=== PATIENT | female | born 1980 | race Caucasian/White ===

== ENCOUNTER 2019-02-09 16:58 | Observation (INO) | payer OTHER ==
[2019-02-09 17:22] LABS: BILIRUBIN,URINE NEGATIVE (NEG); CLARITY,URINE CLEAR; COLOR,URINE YELLOW; NITRITE,URINE NEGATIVE (NEG); PH,URINE 5.5; PROTEIN,URINE NEGATIVE (NEG-TRACE)
[2019-02-09 17:31] LABS: BACTERIA,URINE MODERATE /HPF (0-FEW); RBC,URINE 0 /HPF (0-2); SQUAMOUS EPITHELIAL CELL,UR MANY /LPF
[2019-02-09] MEDS: IV RINGERS,LACTATED 1000ML 1,000 ML IV SCH ×2 (18:07→18:29)
[2019-02-09 18:19] LABS: BASO # 0.1 x10^3/uL (0.0-0.2); BASO % 0 % (0-3); EOS % 0 % (0-3); HEMATOCRIT 35.2 % (36.0-47.0); HEMOGLOBIN 11.8 g/dL (12.0-15.5); LYMPH # 2.2 x10^3/uL (1.0-4.8); LYMPH % 15 % (24-48); MEAN CORPUSCULAR HEMOGLOBIN 32 pg (25-35); MEAN CORPUSCULAR HGB CONC 33 g/dL (31-37); MEAN CORPUSCULAR VOLUME 96 fL (79-100); MONO # 0.9 x10^3/uL (0.0-1.1); MONO % 6 % (0-9); NEUT # 11.7 x10^3/uL (1.8-7.7); NEUT % 79 % (31-73); PLATELET COUNT 260 x10^3/uL (140-400); RED BLOOD COUNT 3.65 x10^6/uL (3.50-5.40); RED CELL DISTRIBUTION WIDTH 12.7 % (11.5-14.5); WHITE BLOOD COUNT 14.9 x10^3/uL (4.0-11.0)
[2019-02-09 18:28] LABS: CALCIUM 8.9 mg/dL (8.5-10.1); CREATININE 0.6 mg/dL (0.6-1.0); GFR 110.2; POTASSIUM 3.6 mmol/L (3.5-5.1)
[2019-02-09 18:42] LABS: ALBUMIN 2.7 g/dL (3.4-5.0); ALBUMIN/GLOBULIN RATIO 0.7 (1.0-1.7); TOTAL BILIRUBIN 0.4 mg/dL (0.2-1.0); TOTAL PROTEIN 6.6 g/dL (6.4-8.2)
[2019-02-09] MEDS ORDERED: ONDANSETRON PF 4 MG/2 ML VIAL. ONE (19:22)
[2019-02-09] MEDS ORDERED: MAGNESIUM SULFATE 2GM 50 ML IV ONE ×2 (19:22→19:30)
[2019-02-09] MEDS ORDERED: MAGNESIUM SULFATE 4GM 100 ML IV ONE ×2 (19:22→19:30)
--- NOTE | 2019-02-09 19:25 | RAD ---
Limited OB ultrasound greater than 14 weeks HISTORY: Abdominal pain and contractions There is a single live intrauterine the heartbeat is confirmed at 140 beats per minute. Visualization of structures is limited by the advanced facial age. There is a cephalic position. There is a posterior placenta. The LMP of 07/22/2018 corresponds with 28 week 6 day gestational age and estimated confinement April 28, 2019. Estimated size by ultrasound is 20 weeks 4 days. Estimated weight is 2 lbs. 12 oz. +/- 6 ounces. The measurements are as follows: BPD 7.2 cm 20 weeks 5 days Head circumference 26.6 cm 29 weeks 0 days Abdominal circumference 24.4 cm 28 weeks 5 days Femur length 5.2 cm 27 weeks 6 days Amniotic fluid index is 7.0 cm. Maternal cervix is not well seen due to the cephalic position. IMPRESSION: 1. Single live intrauterine at 28 weeks 6 days gestational age by LMP has appropriate size by ultrasound. 2. No abnormality identified. Electronically signed by: Doug Carney III, MD (02/09/2019 7:23 PM) [id number]
[2019-02-09] MEDS ORDERED: ONDANSETRON PF 4 MG/2 ML VIAL. IV ONE (19:30)
[2019-02-09] MEDS ORDERED: BETAMET ACET&NA PHOS 30 MG/5 ML VIAL. IM ONE (19:30)
--- NOTE | 2019-02-09 19:37 | PDOC1 ---
OB - History Hx of Present Care: Good Care Ultrasounds: Normal mid trimester US Obstetrical Complications: None Medical Complications: None Past Family/Social History * Past Medical, Surgical, Family and Obstetric Histories reviewed from chart. Blood Type: Unknown Rubella: Unknown RPR/VDRL: Unknown GBS Status: Unknown HBsAG: Unknown OB - Chief Complaint & HPI Date of Admission: Date of Admission: Feb 09, 2019 at 16:58 Chief Complaint/History : 3 Para: 2 EGA: 28 Reason for admission: labor Admission Nurse Assessment Rev: Yes OB - Admission Exam Physical Exam HEENT: Normal Heart: Regular Rate Lungs: Clear Abdomen: Gravid, Soft, Other (low back pain), Tender Extremities: Edema Reflexes: Normal Cervical Dilatation: 2cm Effacement: 75% Station: Ballotable Membranes: Intact Heart Rate: Normal Accelerations: Accelerations Present Decelerations: No decelerations Contractions on Admission: 6-10 Minutes Apart Intensity: Firm Text A: 28 wks IUP PTL H/o Preeclampsia and GDM with previous P: Admit and Plan for transfer to [facility] under care of Dr. Mccloud. Pt. received PNC in [place] at [facility], [facility]. Pt. to have magnesium sulfate for PTL and betamethasone for lung maturity. She will receive Pen G prophylaxis as well. NEO DOMINGUEZ Jr, MD Feb 09, 2019 19:37
[2019-02-09] MEDS ORDERED: PENICILLIN G K 5,000,000 UNIT in IV DEXTROSE 5% 100ML 100 ML IV ONE (19:45)
== END 2019-02-09 19:55 | disposition short-term general hospital (02) ==
LOC: 3 SO LND 16:58
PROVIDERS: ADMIT Obstetrics & Gynecology; ATTEND Obstetrics & Gynecology
DX: O60.03 Preterm labor without delivery, third trimester (principal); O24.419 Gestational diabetes mellitus in pregnancy, unspecified control; O26.893 Other specified pregnancy related conditions, third trimester; M54.5 Low back pain; Z3A.28 28 weeks gestation of pregnancy
CPT/HCPCS: 36415; 76815; 80053; 81001; 85025; 87086; 87653; 96365; 96372; 96375; G0378; G0379; J0702; J2405; J2540; J3475; J7120